=== PATIENT | male | born 1985 | race Caucasian/White ===

== ENCOUNTER 2020-06-25 12:33 | Emergency (ER) | payer BC, OTHER ==
--- NOTE | 2020-06-25 12:41 | EDM.PDOC ---
ED HPI GENERAL MEDICAL PROBLEM - General Chief Complaint: Upper Extremity Injury/Pain Stated Complaint: fall, right shoulder, left hand injury Time Seen by Provider: 06/25/20 12:35 Source of Information: Reports: Patient, Old Records ([facility] chart/EMR) History Limitations: Reports: No Limitations - History of Present Illness INITIAL COMMENTS - FREE TEXT/NARRATIVE: The patient drove himself to the emergency room via private automobile for evaluation of a Workmen's Compensation injury, which occurred at about 11 AM this morning. The patient was throwing some train lids when he accidentally slipped and fell about 5 feet into drain compartment with his hands extended and resulting in a 9/10 right shoulder pain and 6/10 left hand pain with no history of injuries to these areas in the past. He was wearing a safety harness at the time with no history of paresthesias, neurological deficits, head injury, change in mental status, neck/back pain, neurological deficits, or other complaints or injuries. He did take 400 mg of ibuprofen shortly after the above injury. No recent history of abdominal pain, heartburn, nausea, diarrhea, melena, gross hematochezia, or any food intolerance, including fatty foods, etc.. The patient also denies any recent fever, cough, wheezing, dyspnea, etc.. Onset: Today, Sudden Onset Date: 06/25/20 Onset Time: 11:00 Duration: Constant Location: Reports: Upper Extremity, Left, Upper Extremity, Right. 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 Denies: High Cholesterol Other Cardiovascular History: He does not know his cholesterol status with fatty liver as below. Gastrointestinal History: Reports: Fatty Liver, Other (See Below) Other Gastrointestinal History: Fatty liver by CT scan in 2013 as below. Musculoskeletal History: Reports: Arthritis, Back Pain, Chronic, Neck Pain, Chronic, Osteoarthritis. Denies: Fracture Endocrine/Metabolic History: Reports: Obesity/BMI 30+ Hematologic History: Reports: Other (See Below) Other Hematologic History: Previous polycythemia likely secondary to previous tobacco use. - Past Imaging History Past Imaging History: Reports: CAT Scan (CT of the abdomen and pelvis on 05/16/2014.) Social & Family History - Tobacco Use Smoking Status *Q: Former Smoker Tobacco Use Within Last Twelve Months: No Years of Tobacco use: 13 Packs/Tins Daily: 1 Packs/Tins Daily Comment: Smoked 1-2 packs of cigarettes per day between ages 15 and 28. 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 ED EXAM, GENERAL - Physical Exam Exam: See Below Exam Limited By: No Limitations General Appearance: Alert, WD/WN, No Apparent Distress Head: Atraumatic, Normocephalic. No: Facial Swelling, Facial Tenderness Neck: Normal Inspection, Supple, Non-Tender, Full Range of Motion. No: Lymphadenopathy (L), Lymphadenopathy (R), Thyromegaly Respiratory/Chest: No Respiratory Distress, Lungs Clear, Normal Breath Sounds, No Accessory Muscle Use, Chest Non-Tender. No: Pleural Rub, Retractions Cardiovascular: Normal Peripheral Pulses, Regular Rate, Rhythm, No Edema, No Gallop, No JVD, No Murmur, No Rub. No: Gallop/S3, Gallop/S4, Friction Rub Peripheral Pulses: 2+: Radial (L), Radial (R) GI/Abdominal: Normal Bowel Sounds, Soft, Non-Tender, No Organomegaly, No Distention, No Abnormal Bruit, No Mass, Pelvis Stable, Other (Obese). No: Guarding (Male) Exam: Deferred Rectal (Males) Exam: Deferred Back Exam: Normal Inspection, Full Range of Motion. No: CVA Tenderness (L), CVA Tenderness (R), Muscle Spasm Extremities: Non-Tender, No Pedal Edema, Normal Capillary Refill, Arm Pain (Moderate right shoulder pain with range of motion and by palpation both anteriorly and posteriorly with no evidence of deformity, crepitation, fracture, joint effusion, etc. Equivocal tenderness over the MCP of digits #3 and 4 of the left hand with no tenderness over the proximal phalanges and no evidence of fracture, dislocation, swelling, etc.), Limited Range of Motion (Right shoulder. Full range of motion of the left hand and fingers.). No: Joint Swelling, Tim's Sign Neurological: Alert, Oriented, CN II-XII Intact, Normal Cognition, Normal Gait, No Motor/Sensory Deficits Psychiatric: Normal Affect, Normal Mood Skin Exam: Warm, Dry, Intact, Normal Color, No Rash, Tattoo(s) (Multiple). No: Diaphoretic, Ecchymosis, Wound/Incision Lymphatic: No Adenopathy Course - Vital Signs Last Recorded V/S: Last Vital Signs Temp 37.3 C 06/25/20 12:34 Pulse 77 06/25/20 13:05 Resp 18 06/25/20 12:34 BP 152/96 H 06/25/20 13:05 Pulse Ox 98 06/25/20 12:34 Vital Signs - 24 hr 06/25/20 06/25/20 12:34 13:05 Temperature [ 37.3 C Oral] Pulse, 81 77 Peripheral [ Right Pulse Oximetry] Respiratory 18 Rate Blood Pressure 157/120 H 152/96 H [Left Upper Arm ] O2 Sat by Pulse 98 Oximetry - Orders/Labs/Meds Orders: Active Orders 24 hr Category Date Time Status Hand Comp Min 3V Lt [CR] Stat Exams 06/25/20 12:41 Taken Shoulder Comp Rt [CR] Stat Exams 06/25/20 12:41 Taken Obtain Past Medical Record [OM.PC] Routine Oth 06/25/20 12:41 Active Labs: None Meds: None - Radiology Interpretation Free Text/Narrative:: X-rays of the right shoulder, complete, shows no evidence of fracture, dislocation, etc. Mild to moderate osteoarthritic changes noted. X-rays of the left hand, 3 views, shows moderate osteoarthritic changes with no acute fracture, dislocation, etc. Note probable vascular artifacts in the midshaft aspects of the proximal phalanx of digits #3 and 4. Departure - Departure Time of Disposition: 13:23 Disposition: Home, Self-Care 01 Condition: Good Clinical Impression: Left hand pain Right shoulder pain Qualifiers: Chronicity: acute Qualified Code(s): M25.511 - Pain in right shoulder Osteoarthritis Qualifiers: Osteoarthritis location: multiple joints Osteoarthritis type: primary Qualified Code(s): M89.49 - Other hypertrophic osteoarthropathy, multiple sites Hypertension Qualifiers: Hypertension type: essential hypertension Qualified Code(s): I10 - Essential (primary) hypertension - Discharge Information *PRESCRIPTION DRUG MONITORING PROGRAM REVIEWED*: Not Applicable *COPY OF PRESCRIPTION DRUG MONITORING REPORT IN PATIENT GAGE: Not Applicable Instructions: Shoulder Pain, [id number], Muscle Strain, [id number] Referrals: Marlo Capellan PA [Primary Care Provider] - Forms: ED Department Discharge, ED Return to Work/School Form Additional Instructions: 1. Followup with your regular provider in 7 days as directed for reevaluation and adjustment of your work excuse. X-rays will be repeated at that time as needed depending on your physical exam at that visit. Bring these discharge instructions with you to that visit. 2. Tylenol 650 mg by mouth every 4 hours and/or OTC ibuprofen 2-3 tabs by mouth every 6 hours with food as directed./needed. You may stagger these medications for 48-72 hours only, which essentially means that you are receiving a pain medication about every 2 hours. 3. BenGay or equivalent, heating pad, and/or ice packs as directed. 4. Work excuse- See Form 5. Continue to observe your blood pressures and pulses closely through your regular provider 6. Immediately after this visit verify that your cellular telephone's voicemail has been activated and is empty. Also verify that your home telephone's answering machine is operating properly and has space to receive messages. Note that it is sometimes necessary for us to be able to contact you at a later date to discuss your medical care. 7. Please remember that we are ALWAYS here for you and want to answer any questions you may have. Feel free to call the hospital any time and we call you back ALEE. Sepsis Event Note (ED) - Focused Exam Vital Signs: Vital Signs Temp Pulse Resp BP Pulse Ox 06/25/20 13:05 77 152/96 H 06/25/20 12:34 37.3 C 81 18 157/120 H 98 - Problem List & Annotations (1) Right shoulder pain SNOMED Code(s): 08111420, 59181605 Code(s): M25.511 - PAIN IN RIGHT SHOULDER Status: Acute Priority: High Current Visit: No Onset Date: 06/25/20 Annotation/Comment:: Minor right shoulder muscles strain. Work excuse and Workmen's Compensation forms were completed. Activity restrictions, etc. were discussed. Close follow-up by regular provider as per discharge instructions. Symptomatic relief as per disc harge instructions. Qualifiers: Chronicity: acute Qualified Code(s): M25.511 - Pain in right shoulder (2) Left hand pain SNOMED Code(s): 82089297 Code(s): M79.642 - PAIN IN LEFT HAND Status: Acute Priority: High Current Visit: No Onset Date: 06/25/20 Annotation/Comment:: Mild muscle hand sprain/contusion with symptomatic relief as per discharge instruction. Note probable artifact of the proximal phalanx at digits #3 and 4 of the x-ray with patient not tender in this area with most of his discomfort at the MCP joints. Observe for now (3) Hypertension SNOMED Code(s): 50578176 Code(s): I10 - ESSENTIAL (PRIMARY) HYPERTENSION Status: Chronic Priority: Medium Current Visit: No Annotation/Comment:: Moderate control based on today's evaluation. Improved without therapy prior to discharge. Continue close follow-up by his regular provider. No medication changes at this time. Qualifiers: Hypertension type: essential hypertension Qualified Code(s): I10 - Essential (primary) hypertension (4) Osteoarthritis SNOMED Code(s): 143275018 Code(s): M19.90 - UNSPECIFIED OSTEOARTHRITIS, UNSPECIFIED SITE Status: Chronic Priority: Medium Current Visit: No Annotation/Comment:: Otherwise stable by history with no evidence of other injury. Qualifiers: Osteoarthritis location: multiple joints Osteoarthritis type: primary Qualified Code(s): M89.49 - Other hypertrophic osteoarthropathy, multiple sites - Problem List Review Problem List Initiated/Reviewed/Updated: Yes - My Orders Last 24 Hours: My Active Orders 06/25/20 12:41 Hand Comp Min 3V Lt [CR] Stat Shoulder Comp Rt [CR] Stat Obtain Past Medical Record [OM.PC] Routine - Assessment/Plan Last 24 Hours: My Active Orders 06/25/20 12:41 Hand Comp Min 3V Lt [CR] Stat Shoulder Comp Rt [CR] Stat Obtain Past Medical Record [OM.PC] Routine Assessment:: As above Plan: As above. Extensive precautions were given to the patient, who is in agreement with the treatment plan. See Patient Instructions for further treatment and plan.
== END 2020-06-25 13:23 | disposition home or self-care (01) ==
LOC: LL.ED 12:33
DX: M25.511 Pain in right shoulder (principal); I10 Essential (primary) hypertension; M79.642 Pain in left hand; M89.49 Other hypertrophic osteoarthropathy, multiple sites; Z79.899 Other long term (current) drug therapy; E66.9 Obesity, unspecified; Z87.891 Personal history of nicotine dependence; W01.0XXA Fall on same level from slipping, tripping and stumbling without subsequent striking against object, initial encounter; Y99.0 Civilian activity done for income or pay
CPT/HCPCS: 73030-RT; 73130-LT; 99283-25

== ENCOUNTER 2023-11-03 19:38 | Emergency (ER) | payer BC, OTHER ==
[2023-11-03] MEDS ORDERED: Sodium Chloride 0.9% 10 ML Syringe FLUSH PRN (19:48)
[2023-11-03 19:59] LABS: BASOPHILS ABSOLUTE AUTO 0.04 K/uL (0.00-0.20); BASOPHILS PERCENT AUTO 0.4 % (0.0-2.0); EOSINOPHILS ABSOLUTE AUTO 0.06 K/uL (0.00-0.50); EOSINOPHILS PERCENT AUTO 0.6 % (0.0-5.0); HEMATOCRIT 47.9 % (39.0-49.0); HEMOGLOBIN 16.8 g/dL (13.1-16.8); LYMPHOCYTES ABSOLUTE AUTO 2.66 K/uL (0.50-3.50); LYMPHOCYTES PERCENT AUTO 26.8 % (10.0-50.0); MEAN CORPUSCULAR HEMOGLOBIN 30.5 pg (28.2-33.3); MEAN CORPUSCULAR HGB CONC 35.1 g/dL (31.7-36.0); MEAN CORPUSCULAR VOLUME 87.1 fL (84.0-98.0); MONOCYTES ABSOLUTE AUTO 0.71 K/uL (0.00-1.00); MONOCYTES PERCENT AUTO 7.1 % (2.0-14.0); NEUTROPHILS ABSOLUTE AUTO 6.47 K/uL (1.40-7.00); NEUTROPHILS PERCENT AUTO 65.1 % (45.0-80.0); PLATELET COUNT,PLT 275 K/uL (150-350); RED CELL DISTRIBUTION WIDTH 12.8 % (11.2-14.1); WHITE BLOOD CELL COUNT,WBC 9.9 K/uL (4.0-10.2)
[2023-11-03 20:24] LABS: ANION GAP 9.8 meq/L (7-15); CALCIUM 9.1 mg/dL (8.5-10.1); CARBON DIOXIDE,CO2 26.2 mmol/L (21.0-32.0); CREATININE 0.94 mg/dL (0.51-1.17); EST CRCL DRUG DOSING (CG) 100.6 mL/min; MAGNESIUM 1.9 mg/dL (1.8-2.4); POTASSIUM,K 3.6 mmol/L (3.5-5.1); PROTEIN TOTAL,TP 7.6 g/dL (6.4-8.2)
[2023-11-03] MEDS ORDERED: Ketorolac 15 MG/ML SDV IVPUSH ONE (20:59)
[2023-11-03 21:08] LABS: CORONAVIRUS COVID-19 NAA NEGATIVE (NEGATIVE); INFLUENZA A NAA NEGATIVE (NEGATIVE); INFLUENZA B NAA NEGATIVE (NEGATIVE); RESPIRATORY SYNCYTIAL VIR NAA NEGATIVE (NEGATIVE)
== END 2023-11-03 21:20 | disposition home or self-care (01) ==
LOC: LL.ED 19:38
DX: S06.0X0A Concussion without loss of consciousness, initial encounter (principal); R55 Syncope and collapse; E66.9 Obesity, unspecified; I10 Essential (primary) hypertension; Z20.822 Contact with and (suspected) exposure to COVID-19; Z87.891 Personal history of nicotine dependence; Z79.899 Other long term (current) drug therapy; Z88.1 Allergy status to other antibiotic agents; W19.XXXA Unspecified fall, initial encounter
CPT/HCPCS: 0241U; 36415; 70450; 71046; 72100; 80053; 83605; 83735; 83880; 84484; 85025; 85379; 93005; 96374; 99284-25; J1885